=== PATIENT | male | born 2000 | race Caucasian/White ===

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

== ENCOUNTER 2023-06-08 15:07 | Emergency (ER) | payer OTHER, SELFPAY ==
[2023-06-08 15:09] VITALS: BP 178/96; PULSE 82; RESP 17; TEMP 36.8; O2SAT 98
--- NOTE | 2023-06-08 15:15 | DI.RAD_ITS ---
Exam(s) XR CLAVICLE LT EXAM: XR CLAVICLE LT CLINICAL HISTORY: pain/deformity s/p fall skiing TECHNIQUE: 2D digital imaging was performed. Two views COMPARISON: None FINDINGS: BONES: Mid clavicle fracture. Adjacent comminuted fragment. Inferior displacement of distal portion . No bony destructive lesion is seen. JOINTS: AC joint not widened. SOFT TISSUE: Unremarkable. IMPRESSION: Comminuted mid clavicle fracture. DATA REPOSITORY: RADIATION DOSE DELIVERED:
--- NOTE | 2023-06-08 15:23 | W.ED.GENAD ---
HPI General Stated Complaint: Orthopedic Mode of arrival: ambulatory. KASHIF: 3 Date/Time Provider Initiated Documentation: 06/08/23 15:13. Limitations to Documentation: no limitations. Information obtained by: patient. History of Present Illness left shoulder/clavicle injury moderate hour(s) (1) constant Rest improves symptom(s), Movement worsens symptoms no other symptoms. none Related Data Home Medications Medication Instructions Recorded Confirmed oxycodone 5 mg tablet 5 mg PO Q8H PRN pain #12 tabs 06/08/23 Previous Rx's Medication Instructions Recorded oxycodone 5 mg tablet 5 mg PO Q8H PRN pain #12 tabs 06/08/23 Allergies Allergy/AdvReac Type Severity Reaction Status Date / Time No Known Allergies Allergy Unverified 06/08/23 15:13 Review of Systems All systems reviewed & are unremarkable except as noted in HPI and below Constitutional Constitutional: Denies chills, Denies fever(s) and Denies weakness Cardiovascular Cardiovascular: Denies chest pain and Denies dyspnea Respiratory Respiratory: Denies cough and Denies dyspnea Gastrointestinal Gastrointestinal: Denies abdominal pain, Denies nausea and Denies vomiting Integumentary/Breasts Skin/Breast: Denies rash Neurologic Neurologic: Denies weakness PFSH All Active Problems (Updated 06/08/23 @ 16:08 by Juarez Daniel MD) Closed fracture of left clavicle (Acute) Social History Smoking/Tobacco Use Status: Never Smoking risk assessment performed?: Yes Alcohol Intake: current Alcohol Intake frequency: holidays/special occasions only Drug use: Never Substance use type: does not use Housing: house [facility] Have you Been Recently Intoxicated or Drunk Within the Last 30 days?: No Have you Ever Experienced Previous Episodes of Alcohol Withdrawal?: No Have you ever Experienced Withdrawal Seizures?: No Have you ever Experienced Delirium Tremens(DT)s?: No Have you ever undergone Alcohol Rehabilitation Treatment (i.e, inpt ot outpatient treatment programs)?: No Have you ever Experienced Blackouts?: No Have you ever Combined Alcohol with other Downers within the last 90 days?: No Have you ever Combined Alcohol with any other Substance of Abuse during the last 90 days?: No Result: 0 Exam Const General: no acute distress Orientation: alert HENCT Head: normal to inspection Ears: external ears normal General nose exam: external nose normal Mouth: moist mucous membranes Eyes General: appearance normal, both eyes and all related structures Neck Neck: normal visual inspection, full ROM and nontender Resp Effort & Inspection: normal respiratory effort and able to speak in complete sentences Cardio Rate: regular rate GI Palpation: soft and nontender Back/Spine/Pelvis Back: no CVA tenderness Thoracic/Lumbar Spine: thoracic and lumbar spine normal to inspection, No thoracic spinal tenderness and No lumbar spinal tenderness Skin General skin exam: no rashes or lesions noted Neuro General: patient alert and patient oriented x3 Extrem General: no cyanosis Psych Mental Status: mental status grossly normal Course Vital Signs Vital signs: Vital Signs Temperature 36.8 C 06/08/23 15:09 Pulse 82 06/08/23 15:09 Respiratory Rate 17 06/08/23 15:09 Blood Pressure 178/96 H 06/08/23 15:09 Pulse Oximetry 98 06/08/23 15:09 Temperature 36.8 C 06/08/23 15:09 Temperature Source Oral 06/08/23 15:09 Pulse 82 06/08/23 15:09 Respiratory Rate 17 06/08/23 15:09 Respiratory Effort Non-Labored 06/08/23 15:12 Blood Pressure 178/96 H 06/08/23 15:09 Blood Pressure Position Sitting 06/08/23 15:09 Pulse Oximetry 98 06/08/23 15:09 Oxygen Delivery Method Room Air 06/08/23 15:09 Oxygen Flow Rate 0 06/08/23 15:09 Pain Level 7 06/08/23 15:09 Medical Decision Making 23 yo male who denies chronic medical problems comes in with chief complaint of left clavicle pain. He was skiing and wearing a helmet and lost control and fell landing on his left shoulder. He denies loc and has no head pain, neck pain, back pain, chest pain or abdomen pain. He is caox4 speaking clearly on arrival, no signs of trauma to the head, no c/t/l spine tenderness, no chest or abdomen tenderness. He has a deformity of the left mid clavicle and pain in this area with skin tenting. He has no tenderness in the shoulder, humerus, elbow, forearm wrist or hand and normal peripheral pulses and sensation. Suspect clavicle fracture, will obtain xrays. xray confirms fracture of the clavicle, discussed with ortho given the tenting, Dr. Pope advised if skin is mobile over the area no other acute interventions and can f/u with them. The skin is mobile, placed in sling and placed on the ortho f/u list, return precautions given Differential Diagnosis Differential Diagnosis: fracture, contusion, sprain, Imaging Data Radiologic Study: Attestation: I personally reviewed and interpreted this imaging study as follows: Imaging: X-Ray Radiologist's impression: Exam(s) XR CLAVICLE LT EXAM: XR CLAVICLE LT CLINICAL HISTORY: pain/deformity s/p fall skiing TECHNIQUE: 2D digital imaging was performed. Two views COMPARISON: None FINDINGS: BONES: Mid clavicle fracture. Adjacent comminuted fragment. Inferior displacement of distal portion. No bony destructive lesion is seen. JOINTS: AC joint not widened. SOFT TISSUE: Unremarkable. IMPRESSION: Comminuted mid clavicle fracture Quality:SDOH Health Related Social Needs: No Data to Display Discharge Plan Disposition Patient Disposition: Home Condition: Stable Discharge Details Clinical Impression: Closed fracture of left clavicle Primary Care Provider: Simran,Local ED Provider: Juarez Daniel Home Meds and New Rx's Prescriptions: New oxycodone 5 mg tablet 5 mg PO Q8H PRN (Reason: pain) Qty: 12 0RF Discharge Instructions Instructions: Clavicle Fracture (ED) Additional Instructions: call the orthopedic office tomorrow to arrange for follow up you can take 1000mg tylenol and 600mg ibuprofen every 6 hours as needed if you feel more ill, new pain such as severe head pain, or have severe uncontrolled pain return to the emergency department Referrals: Riley Pope MD [ [facility] STAFF PHYSICIAN] -
[2023-06-08] MEDS: HYDROmorphone 2 MG/ML SYR 1 MG IM (15:30)
== END 2023-06-08 16:16 | disposition home or self-care (01) ==
LOC: ER 16:26
PROVIDERS: Emergency Provider Emergency Medicine
DX: S42.022A Displaced fracture of shaft of left clavicle, initial encounter for closed fracture (principal); V00.321A Fall from snow-skis, initial encounter
CPT/HCPCS: 96372; 99283; 73000; J1170

== ENCOUNTER 2023-06-10 14:42 | Outpatient (CLI) | payer OTHER, SELFPAY ==
--- NOTE | 2023-06-10 13:45 | DI.RAD_ITS ---
Exam(s) XR CLAVICLE LT EXAM: XR CLAVICLE LT CLINICAL HISTORY: LEFT CLAVICLE FX TECHNIQUE: 2D digital imaging was performed of the left clavicle. Two images were obtained. AP and axial views were obtained. COMPARISON: CR XR CLAVICLE LT from 06/08/2023 FINDINGS: BONES: There is no change in alignment of the comminuted displaced fracture of the midshaft of the le ft clavicle. No new fractures identified. No bony destructive lesion is seen. JOINTS: No dislocation present. SOFT TISSUE: The visualized lungs are clear. IMPRESSION: Stable left clavicular fracture. DATA REPOSITORY: RADIATION DOSE DELIVERED:
== END 2023-06-10 14:43 | disposition home or self-care (01) ==
LOC: DIORS 14:42
PROVIDERS: Visit Provider Physician Assistant
DX: S42.022D Displaced fracture of shaft of left clavicle, subsequent encounter for fracture with routine healing (principal); X58.XXXD Exposure to other specified factors, subsequent encounter
CPT/HCPCS: 73000